=== PATIENT | female | born 1980 | race Two or more races ===

== ENCOUNTER 2018-12-31 09:24 | Inpatient (IN) | payer OTHER ==
[~2018-12-31] VITALS: Ht 157.5 cm; Wt 79.8 kg
[2019-01-15] MEDS ORDERED: PRENATAL TABLE1 EACH PO (14:17)
[2019-01-15] MEDS ORDERED: IRON240 MG PO (14:18)
== END 2019-01-17 14:53 | disposition home or self-care (01) | DRG 807 ==
LOC: LDR 01-15 14:02 → SURG-SUITE 01-15 14:02 → LDR 01-15 19:02 → SURG-SUITE 01-15 23:47 → OB/GYN 01-28 14:30
PROVIDERS: ADMIT Obstetrics & Gynecology
PROC: 10E0XZZ Delivery of Products of Conception, External Approach (ICD-10-PCS; principal; 2019-01-15)
PROC: 0KQM0ZZ Repair Perineum Muscle, Open Approach (ICD-10-PCS; 2019-01-15)
PROC: 0UQMXZZ Repair Vulva, External Approach (ICD-10-PCS; 2019-01-15)
PROC: 3E033VJ Introduction of Other Hormone into Peripheral Vein, Percutaneous Approach (ICD-10-PCS; 2019-01-15)
PROC: 4A1HXCZ Monitoring of Products of Conception, Cardiac Rate, External Approach (ICD-10-PCS; 2019-01-15)
DX: O70.1 Second degree perineal laceration during delivery (principal); Z37.0 Single live birth; Z3A.38 38 weeks gestation of pregnancy